=== PATIENT | female | born 1970 ===

== ENCOUNTER 2016-08-01 21:33 | Emergency (ER) | payer OTHER ==
--- NOTE | 2016-08-01 23:07 | ED NURSING NOTES ---
Clinical Report - [facility] [address] [place] [address] 08/01/2016 21:35 Patient: RUCHI MCGEE TRIAGE Triage time 21:50 Aug 01 2016. Acuity: LEVEL 4. Chief Complaint: JAW PAIN. --21:57 Rylie Norman R.N. 21:48 08/01/16. BP: 136/90. HR: 74. RR: 16. O2 saturation: 100%. Temp: 98.1 F. Pain level now: 01/02. --21:57 Rylie Norman R.N. Alert. No acute distress. --21:57 Rylie Norman R.N. Weight: 56.6 kg estimated. Height/Length: 64 inches Estimated. BMI: 21.4. --23:06 Seema Toure R.N. Medications Adderall Oral (Tablet 10 mg) 1 tablet, 2x a day. --21:53 Rylie Norman R.N. Copaxone Subcutaneous (Solution Prefilled Syringe 40 mg/mL), 3 times per week. --21:53 Rylie Norman R.N. Naproxen Oral. --21:54 Rylie Norman R.N. Gabapentin Oral (Capsule 300 mg) 1 capsule, at bedtime. --21:54 Rylie Norman R.N. Medication/allergy information source: the patient. --21:57 Rylie Norman R.N. Allergies None. --21:55 Rylie Norman R.N. History Arrived by private vehicle, and accompanied by family and daughter. Onset. (2 days ago). She has a dental appointment scheduled tomorrow. She has had ear pain. She has had swelling of the jaw (yesterday). 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 PAST MEDICAL HX: Immunizations: up-to-date. Last normal menstrual period was 1 week ago. --21:57 Rylie Norman R.N. PROBLEMS: Multiple Sclerosis. ADD - Attention Deficit Disorder. --:57 Rylie Norman R.N. ADDITIONAL SURGERIES: Bilateral Tubal Ligation. Breast Augmentation. . Femur tumor. Knee Surgery. --:57 Rylie Norman R.N. Interventions ID band on patient. --21:57 Rylie Norman R.N. PHYSICAL ASSESSMENT GENERAL / NEURO / PSYCH: Alert. Oriented X 4. Appears in no acute distress. HEENT: Voice within normal limits. Dental tenderness. CVS: Capillary refill less than 2 seconds. SKIN: Skin is warm and dry. --:57 Rylie Norman R.N. NURSING PROGRESS NOTES Two patient identifiers checked. Call light placed in reach. Side rails up x 1. Bed placed in lowest position. Brakes of bed on. Patient ready for evaluation- chart flagged. --21:58 Rylie Norman R.N. 23:00 08/01/2016 Amoxicillin PO Capsules 500 mg given. Allergies verified and confirmed 5 rights. --23:04 Seema Toure R.N. DISPOSITION / DISCHARGE Condition at departure: improved and stable. No learning barriers present. Discharge instructions provided and reviewed with the patient. Reviewed medication(s) side effects, precautions, dosing and course information. Prescription(s) given to the patient. Patient verbalized understanding. Written instructions provided in Dominican. The patient was discharged home and accompanied by gusset edger. She left the Emergency Department ambulatory and via private vehicle. Clinical Team Lead driving. --23:05 Seema Toure R.N. 23:04 08/01/16. BP: 133/78. HR: 74. RR: 16. O2 saturation: 100% on room air. Temp: deferred. Pain level now: 0/10. --23:05 Seema Toure R.N. Locked/Released at 08/01/2016 23:07 by Seema Toure R.N.
--- NOTE | 2016-08-01 23:07 | ED ORDER SUMMARY ---
..... Patient: RUCHI MCGEE OrderSheet [facility] VisitID: [id number] [address] [place] [address] 46y, F Registration Date/Time: 08/01/2016 ORDER SHEET Weight: 56.6 kg (estimated) Allergies: None GENERAL ORDERS: MEDICATION ORDERS: Amoxicillin PO 500 mg (NOW) (22:44 08/01/2016 Andrés MONTERO) (Ack 22:54 RCollier R.N.) (23:04 ALEXANDREollier R.N.) Hydrocodone-APAP PO 5/325 mg x 2 tabs (NOW) (22:44 08/01/2016 Andrés MONTERO) (Ack 22:54 RCollier R.N.) (Cancelled: Patient Oynnolm28:04 RCollier R.N.) IV FLUIDS: ORDER SHEET NOTES: [Electronically signed by Seema Toure R.N. (23:08/01/2016)] [Electronically locked/signed by Seema Toure R.N. (23:08/01/2016)]
--- NOTE | 2016-08-01 23:07 | ED CLINICAL REPORT ---
Clinical Report - Physicians/Mid Levels [facility] [address] [place] [address] 08/01/2016 21:35 Patient: RUCHI MCGEE Time Seen: 22:39. Arrived- By private vehicle. Historian- patient. HISTORY OF PRESENT ILLNESS Chief Complaint: DENTAL PAIN. This started about 2 days ago and is still present. It was gradual in onset. Pain described as moderate. The patient has had toothache. No swollen jaw or face. She has had moderate right jaw pain. Recent medical care: The patient was seen recently by a health care provider. ( Med check). REVIEW OF SYSTEMS No fever, cough or difficulty breathing. PAST HISTORY PCP: Giorgio PROBLEMS: Multiple Sclerosis. ADD - Attention Deficit Disorder. ADDITIONAL SURGERIES: Bilateral Tubal Ligation. Breast Augmentation. . Femur tumor. Knee Surgery. ADDITIONAL NOTES The nursing notes have been reviewed. PHYSICAL EXAM Vital Signs: 08/01/2016 23:04 BP: 133/78. HR: 74. RR: 16. O2 saturation: 100%. Pain level now: 0/10. 08/01/2016 21:48 BP: 136/90. HR: 74. RR: 16. O2 saturation: 100%. Temp: 98.1 F. Pain level now: 8/10. Appearance: Alert. No acute distress. ENT: Dental tenderness (upper right second molar). No mouth ulcerations or muffled or hoarse voice. Neck: Normal inspection. Trachea midline. No adenopathy. Thyroid normal. Respiratory: No respiratory distress. Breath sounds normal. Abdomen: Soft and nontender. PROGRESS AND PROCEDURES Dental Nerve Block: Procedure performed on the right side. Landmarks were identified. Topical anesthetic applied. Total volume of 1 mL 0.5% Marcaine infiltrated using a 23-gauge needle. No complications encountered- bleeding. ( Posterior superior nerve block). Course of Care: 01/02 following the block . Disposition: Discharged. Condition: good. CLINICAL IMPRESSION Dental abscess. INSTRUCTIONS Prescription Medications: Hydrocodone/APAP 5mg / 325mg: take 1-2 orally every 4 hours as needed for pain. Dispense fifteen (15). No refill. Amoxicillin 500 mg tablets: Take 1 orally every 8 hours for 10 days. Dispense thirty (30). No refills. Follow-up: Follow up with a dentist today. (Electronically signed by Oziel Ang MD 08/03/2016 22:21)
--- NOTE | 2016-08-01 23:07 | ED NURSING NOTES ---
Clinical Report - Nurses [facility] [address] [place] [address] 08/01/2016 21:35 Patient: RUCHI MCGEE TRIAGE Triage time 21:50 Aug 01 2016. Acuity: LEVEL 4. Chief Complaint: JAW PAIN. --21:57 Rylie Norman R.N. 21:48 08/01/16. BP: 136/90. HR: 74. RR: 16. O2 saturation: 100%. Temp: 98.1 F. Pain level now: 01/02. --21:57 Rylie Norman R.N. Alert. No acute distress. --21:57 Rylie Norman R.N. Weight: 56.6 kg estimated. Height/Length: 64 inches Estimated. BMI: 21.4. --23:06 Seema Toure R.N. Medications Adderall Oral (Tablet 10 mg) 1 tablet, 2x a day. --21:53 Rylie Norman R.N. Copaxone Subcutaneous (Solution Prefilled Syringe 40 mg/mL), 3 times per week. --21:53 Rylie Norman R.N. Naproxen Oral. --21:54 Rylie Norman R.N. Gabapentin Oral (Capsule 300 mg) 1 capsule, at bedtime. --21:54 Rylie Norman R.N. Medication/allergy information source: the patient. --21:57 Rylie Norman R.N. Allergies None. --21:55 Rylie Norman R.N. History Arrived by private vehicle, and accompanied by family and daughter. Onset. (2 days ago). She has a dental appointment scheduled tomorrow. She has had ear pain. She has had swelling of the jaw (yesterday). 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 PAST MEDICAL HX: Immunizations: up-to-date. Last normal menstrual period was 1 week ago. --21:57 Rylie Norman R.N. PROBLEMS: Multiple Sclerosis. ADD - Attention Deficit Disorder. --:57 Rylie Norman R.N. ADDITIONAL SURGERIES: Bilateral Tubal Ligation. Breast Augmentation. . Femur tumor. Knee Surgery. --:57 Rylie Norman R.N. Interventions ID band on patient. --21:57 Rylie Norman R.N. PHYSICAL ASSESSMENT GENERAL / NEURO / PSYCH: Alert. Oriented X 4. Appears in no acute distress. HEENT: Voice within normal limits. Dental tenderness. CVS: Capillary refill less than 2 seconds. SKIN: Skin is warm and dry. --:57 Rylie Norman R.N. NURSING PROGRESS NOTES Two patient identifiers checked. Call light placed in reach. Side rails up x 1. Bed placed in lowest position. Brakes of bed on. Patient ready for evaluation- chart flagged. --21:58 Rylie Norman R.N. 23:00 08/01/2016 Amoxicillin PO Capsules 500 mg given. Allergies verified and confirmed 5 rights. --23:04 Seema Toure R.N. DISPOSITION / DISCHARGE Condition at departure: improved and stable. No learning barriers present. Discharge instructions provided and reviewed with the patient. Reviewed medication(s) side effects, precautions, dosing and course information. Prescription(s) given to the patient. Patient verbalized understanding. Written instructions provided in Welsh. The patient was discharged home and accompanied by animal killer. She left the Emergency Department ambulatory and via private vehicle. Fuse Cup Expander driving. --23:05 Seema Toure R.N. 23:04 08/01/16. BP: 133/78. HR: 74. RR: 16. O2 saturation: 100% on room air. Temp: deferred. Pain level now: 0/10. --23:05 Seema Toure R.N. Locked/Released at 08/01/2016 23:07 by Seema Toure R.N.
--- NOTE | 2016-08-01 23:07 | ED CLINICAL REPORT ---
Clinical Report - Physicians/Mid Levels [facility] [address] [place] [address] 08/01/2016 21:35 Patient: RUCHI MCGEE Time Seen: 22:39. Arrived- By private vehicle. Historian- patient. HISTORY OF PRESENT ILLNESS Chief Complaint: DENTAL PAIN. This started about 2 days ago and is still present. It was gradual in onset. Pain described as moderate. The patient has had toothache. No swollen jaw or face. She has had moderate right jaw pain. Recent medical care: The patient was seen recently by a health care provider. ( Med check). REVIEW OF SYSTEMS No fever, cough or difficulty breathing. PAST HISTORY PCP: Giorgio PROBLEMS: Multiple Sclerosis. ADD - Attention Deficit Disorder. ADDITIONAL SURGERIES: Bilateral Tubal Ligation. Breast Augmentation. . Femur tumor. Knee Surgery. ADDITIONAL NOTES The nursing notes have been reviewed. PHYSICAL EXAM Vital Signs: 08/01/2016 23:04 BP: 133/78. HR: 74. RR: 16. O2 saturation: 100%. Pain level now: 0/10. 08/01/2016 21:48 BP: 136/90. HR: 74. RR: 16. O2 saturation: 100%. Temp: 98.1 F. Pain level now: 8/10. Appearance: Alert. No acute distress. ENT: Dental tenderness (upper right second molar). No mouth ulcerations or muffled or hoarse voice. Neck: Normal inspection. Trachea midline. No adenopathy. Thyroid normal. Respiratory: No respiratory distress. Breath sounds normal. Abdomen: Soft and nontender. PROGRESS AND PROCEDURES Dental Nerve Block: Procedure performed on the right side. Landmarks were identified. Topical anesthetic applied. Total volume of 1 mL 0.5% Marcaine infiltrated using a 23-gauge needle. No complications encountered- bleeding. ( Posterior superior nerve block). Course of Care: 01/02 following the block . Disposition: Discharged. Condition: good. CLINICAL IMPRESSION Dental abscess. INSTRUCTIONS Prescription Medications: Hydrocodone/APAP 5mg / 325mg: take 1-2 orally every 4 hours as needed for pain. Dispense fifteen (15). No refill. Amoxicillin 500 mg tablets: Take 1 orally every 8 hours for 10 days. Dispense thirty (30). No refills. Follow-up: Follow up with a dentist today. (Electronically signed by Oziel Ang MD 08/03/2016 22:21)
--- NOTE | 2016-08-01 23:07 | ED ORDER SUMMARY ---
..... Patient: RUCHI MCGEE OrderSheet [facility] VisitID: [id number] [address] [place] [address] 46y, F Registration Date/Time: 08/01/2016 ORDER SHEET Weight: 56.6 kg (estimated) Allergies: None GENERAL ORDERS: MEDICATION ORDERS: Amoxicillin PO 500 mg (NOW) (22:44 08/01/2016 Andrés MONTERO) (Ack 22:54 RCollier R.N.) (23:04 ALEXANDREollier R.N.) Hydrocodone-APAP PO 5/325 mg x 2 tabs (NOW) (22:44 08/01/2016 Andrés MONTERO) (Ack 22:54 RCollier R.N.) (Cancelled: Patient Apmqdzj48:04 RCollier R.N.) IV FLUIDS: ORDER SHEET NOTES: [Electronically signed by Seema Toure R.N. (23:08/01/2016)] [Electronically locked/signed by Seema Toure R.N. (23:08/01/2016)]
--- NOTE | 2016-08-03 22:21 | ED MED RECONCILIATION SUMMARY ---
Patient: RUCHI MCGEE Medication Reconciliation Report [facility] VisitID: [id number] [address] [place] [address] 46y, F Registration Date/Time: 08/01/2016 Weight: 56.6 kg Height/Length: 64 in. BMI: 21.4 ALLERGIES: None The patient's Home Medications are listed below: THE FOLLOWING MEDICATIONS NEED TO BE RECONCILED: Adderall Oral (10 mg) 1 tablet, 2x a day Copaxone Subcutaneous (40 mg/mL), 3 times per week Gabapentin Oral (300 mg) 1 capsule, at bedtime Naproxen Oral The source(s) of the original Home Medication information: patient The following Medications were given to the patient in the Emergency Department: Amoxicillin [PO] PO 500 mg, administered: 08/01/2016 11:00:00 PM The following Medications were prescribed to the patient: Hydrocodone/APAP 5mg / 325mg: take 1-2 orally every 4 hours as needed for pain. Dispense fifteen (15). No refill. -- Oziel Ang MD Amoxicillin 500 mg tablets: Take 1 orally every 8 hours for 10 days. Dispense thirty (30). No refills. -- Oziel Ang MD
--- NOTE | 2016-08-03 22:21 | ED MAR SUMMARY ---
..... Medication Administration Record [facility] [address] [place] [address] Patient: RUCHI MCGEE Visit ID: [id number] 46y, F Weight: 56.6 kg Height/Length: 64 in BMI: 21.4 ALLERGIES: None Given 23:00 08/01/2016 Seema Toure R.N. Medication Administered: AMOXICILLIN [PO], Dose: 500 mg Capsules PO. Medication Ordered: Amoxicillin PO 500 mg (NOW).
--- NOTE | 2016-08-03 22:21 | ED DISCHARGE INSTRUCTIONS ---
Patient: RUCHI MCGEE General Instructions [facility] VisitID: [id number] [place] [address] 46y, F Registration Date/Time: 08/01/2016 Dental abscess. INSTRUCTIONS Prescription Medications: Hydrocodone/APAP 5mg / 325mg: take 1-2 orally every 4 hours as needed for pain. Dispense fifteen (15). No refill. Amoxicillin 500 mg tablets: Take 1 orally every 8 hours for 10 days. Dispense thirty (30). No refills. Follow-up: Follow up with a dentist today. ADDITIONAL INFORMATION Dental Abscess A dental abscess is an infection of the tooth socket. It often starts with a crack or cavity in the tooth. A pocket of pus forms between the tooth and the bone. The infection causes pain and swelling of the gum, cheek or jaw. The pain is often made worse by drinking hot or cold fluids, or biting on hard foods. Pain may be felt in the facial sinus or in the ear. A severe infection can interfere with swallowing and breathing. In the emergency department or clinic, you will be started on an antibiotic. However, final treatment requires drainage of the pus. This can be done by removing the tooth or performing a root canal. A root canal is done by an oral surgeon and involves drilling an opening in the tooth to drain the pus. After the infection has healed, a crown is placed over the tooth. Home care The following guidelines will help you care for your abscess at home: Avoid hot and cold foods and liquids since your tooth may be sensitive to temperature changes. If your tooth is chipped or cracked, or if there is a large open cavity, applyoil of cloves(available [id number] in drug stores) directly to the tooth to reduce pain. Some pharmacies carry an [id number] "toothache kit". This contains oil of cloves and a paste, which can be applied over the exposed tooth to decrease sensitivity. Apply an ice pack (ice cubes in a plastic bag, wrapped in a towel) over the injured area for 20 minutes every 12 hours the first day for pain relief. Continue this 34 times a day until the pain and swelling goes away. You may use acetaminophen or ibuprofen to control pain, unless another medicine was prescribed. If you have chronic liver or kidney disease or ever had a stomach ulcer or GI bleeding, talk with your doctor before using these medicines. An antibiotic will be prescribed. Take it as directed until completed, even if you are feeling better sooner. Follow-up care Follow up as directed with a dentist or oral surgeon. Even though your pain may improve with the treatment given today, only a dentist or oral surgeon can provide full treatment for this problem. When to seek medical care Get prompt medical attention or contact your doctor if any of the following occur: Your face or eyelid becomes swollen or red Pain worsens or spreads to the neck Fever over 100.4F (38.0C) Unusual drowsiness; headache or stiff neck; weakness, or fainting Pus drains from the gum or tooth Difficulty talking, swallowing or breathing Unable to open your mouth wide Hydrocodone Bitartrate, Acetaminophen Oral tablet What is this medicine? ACETAMINOPHEN; HYDROCODONE (a set a DOMINGO mone fen; clara droe KOE done) is a pain reliever. It is used to treat mild to moderate pain. How should I use this medicine? Take this medicine by mouth. Swallow it with a full glass of water. Follow the directions on the prescription label. If the medicine upsets your stomach, take the medicine with food or milk. Do not take more than you are told to take. Talk to your plaster foreman regarding the use of this medicine in children. This medicine is not approved for use in children. What side effects may I notice from receiving this medicine? Side effects that you should report to your doctor or health healthcare social worker as soon as possible: allergic reactions like skin rash, itching or hives, swelling of the face, lips, or tongue breathing problems confusion feeling faint or lightheaded, falls stomach pain yellowing of the eyes or skin Side effects that usually do not require medical attention (report to your doctor or health healthcare social worker if they continue or are bothersome): nausea, vomiting stomach upset What may interact with this medicine? alcohol antihistamines isoniazid medicines for depression, anxiety, or psychotic disturbances medicines for sleep muscle relaxants naltrexone narcotic medicines (opiates) for pain phenobarbital ritonavir tramadol What if I miss a dose? If you miss a dose, take it as soon as you can. If it is almost time for your next dose, take only that dose. Do not take double or extra doses. Where should I keep my medicine? Keep out of the reach of children. This medicine can be abused. Keep your medicine in a safe place to protect it from theft. Do not share this medicine with anyone. Selling or giving away this medicine is dangerous and against the law. Store at room temperature between 15 and 30 degrees C (59 and 86 degrees F). Protect from light. Keep container tightly closed. Throw away any unused medicine after the expiration date. Discard unused medicine and used packaging carefully. Pets and children can be harmed if they find used or lost packages. What should I tell my health care provider before I take this medicine? They need to know if you have any of these conditions: brain tumor Crohn's disease, inflammatory bowel disease, or ulcerative colitis drink more than 3 alcohol-containing drinks per day drug abuse or addiction head injury heart or circulation problems kidney disease or problems going to the bathroom liver disease lung disease, asthma, or breathing problems an unusual or allergic reaction to acetaminophen, hydrocodone, other opioid analgesics, other medicines, foods, dyes, or preservatives or trying to get breast-feeding What should I watch for while using this medicine? Tell your doctor or health healthcare social worker if your pain does not go away, if it gets worse, or if you have new or a different type of pain. You may develop tolerance to the medicine. Tolerance means that you will need a higher dose of the medicine for pain relief. Tolerance is normal and is expected if you take the medicine for a long time. Do not suddenly stop taking your medicine because you may develop a severe reaction. Your body becomes used to the medicine. This does NOT mean you are addicted. Addiction is a behavior related to getting and using a drug for a non-medical reason. If you have pain, you have a medical reason to take pain medicine. Your doctor will tell you how much medicine to take. If your doctor wants you to stop the medicine, the dose will be slowly lowered over time to avoid any side effects. You may get drowsy or dizzy when you first start taking the medicine or change doses. Do not drive, use machinery, or do anything that may be dangerous until you know how the medicine affects you. Stand or sit up slowly. There are different types of narcotic medicines (opiates) for pain. If you take more than one type at the same time, you may have more side effects. Give your health care provider a list of all medicines you use. Your doctor will tell you how much medicine to take. Do not take more medicine than directed. Call emergency for help if you have problems breathing. The medicine will cause constipation. Try to have a bowel movement at least every 2 to 3 days. If you do not have a bowel movement for 3 days, call your doctor or health healthcare social worker. Too much acetaminophen can be very dangerous. Do not take Tylenol (acetaminophen) or medicines that contain acetaminophen with this medicine. Many non-prescription medicines contain acetaminophen. Always read the labels carefully. You have been given the following additional information: Tooth Abscess Hydrocodone Bitartrate, Acetaminophen Oral tablet (Electronically signed by Oziel Ang MD 08/03/2016 22:21)
--- NOTE | 2016-08-03 22:21 | ED MAR SUMMARY ---
..... Medication Administration Record [facility] [address] [place] [address] Patient: RUCHI MCGEE Visit ID: [id number] 46y, F Weight: 56.6 kg Height/Length: 64 in BMI: 21.4 ALLERGIES: None Given 23:00 08/01/2016 Seema Toure R.N. Medication Administered: AMOXICILLIN [PO], Dose: 500 mg Capsules PO. Medication Ordered: Amoxicillin PO 500 mg (NOW).
--- NOTE | 2016-08-03 22:21 | ED MED RECONCILIATION SUMMARY ---
Patient: RUCHI MCGEE Medication Reconciliation Report [facility] VisitID: [id number] [address] [place] [address] 46y, F Registration Date/Time: 08/01/2016 Weight: 56.6 kg Height/Length: 64 in. BMI: 21.4 ALLERGIES: None The patient's Home Medications are listed below: THE FOLLOWING MEDICATIONS NEED TO BE RECONCILED: Adderall Oral (10 mg) 1 tablet, 2x a day Copaxone Subcutaneous (40 mg/mL), 3 times per week Gabapentin Oral (300 mg) 1 capsule, at bedtime Naproxen Oral The source(s) of the original Home Medication information: patient The following Medications were given to the patient in the Emergency Department: Amoxicillin [PO] PO 500 mg, administered: 08/01/2016 11:00:00 PM The following Medications were prescribed to the patient: Hydrocodone/APAP 5mg / 325mg: take 1-2 orally every 4 hours as needed for pain. Dispense fifteen (15). No refill. -- Oziel Ang MD Amoxicillin 500 mg tablets: Take 1 orally every 8 hours for 10 days. Dispense thirty (30). No refills. -- Oziel Ang MD
--- NOTE | 2016-08-03 22:21 | ED DISCHARGE INSTRUCTIONS ---
Patient: RUCHI MCGEE General Instructions [facility] VisitID: [id number] [place] [address] 46y, F Registration Date/Time: 08/01/2016 Dental abscess. INSTRUCTIONS Prescription Medications: Hydrocodone/APAP 5mg / 325mg: take 1-2 orally every 4 hours as needed for pain. Dispense fifteen (15). No refill. Amoxicillin 500 mg tablets: Take 1 orally every 8 hours for 10 days. Dispense thirty (30). No refills. Follow-up: Follow up with a dentist today. ADDITIONAL INFORMATION Dental Abscess A dental abscess is an infection of the tooth socket. It often starts with a crack or cavity in the tooth. A pocket of pus forms between the tooth and the bone. The infection causes pain and swelling of the gum, cheek or jaw. The pain is often made worse by drinking hot or cold fluids, or biting on hard foods. Pain may be felt in the facial sinus or in the ear. A severe infection can interfere with swallowing and breathing. In the emergency department or clinic, you will be started on an antibiotic. However, final treatment requires drainage of the pus. This can be done by removing the tooth or performing a root canal. A root canal is done by an oral surgeon and involves drilling an opening in the tooth to drain the pus. After the infection has healed, a crown is placed over the tooth. Home care The following guidelines will help you care for your abscess at home: Avoid hot and cold foods and liquids since your tooth may be sensitive to temperature changes. If your tooth is chipped or cracked, or if there is a large open cavity, applyoil of cloves(available [id number] in drug stores) directly to the tooth to reduce pain. Some pharmacies carry an [id number]-[id number] "toothache kit". This contains oil of cloves and a paste, which can be applied over the exposed tooth to decrease sensitivity. Apply an ice pack (ice cubes in a plastic bag, wrapped in a towel) over the injured area for 20 minutes every 12 hours the first day for pain relief. Continue this 34 times a day until the pain and swelling goes away. You may use acetaminophen or ibuprofen to control pain, unless another medicine was prescribed. If you have chronic liver or kidney disease or ever had a stomach ulcer or GI bleeding, talk with your doctor before using these medicines. An antibiotic will be prescribed. Take it as directed until completed, even if you are feeling better sooner. Follow-up care Follow up as directed with a dentist or oral surgeon. Even though your pain may improve with the treatment given today, only a dentist or oral surgeon can provide full treatment for this problem. When to seek medical care Get prompt medical attention or contact your doctor if any of the following occur: Your face or eyelid becomes swollen or red Pain worsens or spreads to the neck Fever over 100.4F (38.0C) Unusual drowsiness; headache or stiff neck; weakness, or fainting Pus drains from the gum or tooth Difficulty talking, swallowing or breathing Unable to open your mouth wide Hydrocodone Bitartrate, Acetaminophen Oral tablet What is this medicine? ACETAMINOPHEN; HYDROCODONE (a set a DOMINGO mone fen; clara droe KOE done) is a pain reliever. It is used to treat mild to moderate pain. How should I use this medicine? Take this medicine by mouth. Swallow it with a full glass of water. Follow the directions on the prescription label. If the medicine upsets your stomach, take the medicine with food or milk. Do not take more than you are told to take. Talk to your bacon stringer regarding the use of this medicine in children. This medicine is not approved for use in children. What side effects may I notice from receiving this medicine? Side effects that you should report to your doctor or health adult caregiver as soon as possible: allergic reactions like skin rash, itching or hives, swelling of the face, lips, or tongue breathing problems confusion feeling faint or lightheaded, falls stomach pain yellowing of the eyes or skin Side effects that usually do not require medical attention (report to your doctor or health adult caregiver if they continue or are bothersome): nausea, vomiting stomach upset What may interact with this medicine? alcohol antihistamines isoniazid medicines for depression, anxiety, or psychotic disturbances medicines for sleep muscle relaxants naltrexone narcotic medicines (opiates) for pain phenobarbital ritonavir tramadol What if I miss a dose? If you miss a dose, take it as soon as you can. If it is almost time for your next dose, take only that dose. Do not take double or extra doses. Where should I keep my medicine? Keep out of the reach of children. This medicine can be abused. Keep your medicine in a safe place to protect it from theft. Do not share this medicine with anyone. Selling or giving away this medicine is dangerous and against the law. Store at room temperature between 15 and 30 degrees C (59 and 86 degrees F). Protect from light. Keep container tightly closed. Throw away any unused medicine after the expiration date. Discard unused medicine and used packaging carefully. Pets and children can be harmed if they find used or lost packages. What should I tell my health care provider before I take this medicine? They need to know if you have any of these conditions: brain tumor Crohn's disease, inflammatory bowel disease, or ulcerative colitis drink more than 3 alcohol-containing drinks per day drug abuse or addiction head injury heart or circulation problems kidney disease or problems going to the bathroom liver disease lung disease, asthma, or breathing problems an unusual or allergic reaction to acetaminophen, hydrocodone, other opioid analgesics, other medicines, foods, dyes, or preservatives or trying to get breast-feeding What should I watch for while using this medicine? Tell your doctor or health adult caregiver if your pain does not go away, if it gets worse, or if you have new or a different type of pain. You may develop tolerance to the medicine. Tolerance means that you will need a higher dose of the medicine for pain relief. Tolerance is normal and is expected if you take the medicine for a long time. Do not suddenly stop taking your medicine because you may develop a severe reaction. Your body becomes used to the medicine. This does NOT mean you are addicted. Addiction is a behavior related to getting and using a drug for a non-medical reason. If you have pain, you have a medical reason to take pain medicine. Your doctor will tell you how much medicine to take. If your doctor wants you to stop the medicine, the dose will be slowly lowered over time to avoid any side effects. You may get drowsy or dizzy when you first start taking the medicine or change doses. Do not drive, use machinery, or do anything that may be dangerous until you know how the medicine affects you. Stand or sit up slowly. There are different types of narcotic medicines (opiates) for pain. If you take more than one type at the same time, you may have more side effects. Give your health care provider a list of all medicines you use. Your doctor will tell you how much medicine to take. Do not take more medicine than directed. Call emergency for help if you have problems breathing. The medicine will cause constipation. Try to have a bowel movement at least every 2 to 3 days. If you do not have a bowel movement for 3 days, call your doctor or health adult caregiver. Too much acetaminophen can be very dangerous. Do not take Tylenol (acetaminophen) or medicines that contain acetaminophen with this medicine. Many non-prescription medicines contain acetaminophen. Always read the labels carefully. You have been given the following additional information: Tooth Abscess Hydrocodone Bitartrate, Acetaminophen Oral tablet (Electronically signed by Oziel Ang MD 08/03/2016 22:21)
== END 2016-08-01 23:05 | disposition home or self-care (01) ==
LOC: ED SRH 21:33
DX: K04.7 Periapical abscess without sinus (principal); G35 Multiple sclerosis